=== PATIENT | female | born 1965 | race Caucasian/White ===

== ENCOUNTER 2017-04-14 09:08 | Observation (INO) | payer SELFPAY ==
[2017-04-14] VITALS (9 sets, daily range): BP systolic 146–200; BP diastolic 90–117; PULSE 64–88; RESP 18–20; TEMP 97.4–97.9; O2SAT 95–97
[~2017-04-14] VITALS: Ht 162.6 cm; Wt 69.4 kg
[~2017-04-14 09:08] MED LIST: DICL75 PO; HYDR-3533 PO
[2017-04-14] MEDS ORDERED: NAPR500 PO (09:15)
--- NOTE | 2017-04-14 09:17 | PD ---
HPI Chief Complaint: Chest Pain Time Seen by Provider: 09:13 Travel History International Travel<30 days: No Contact w/Intl Traveler<30days: No Traveled to known affect area: No History of Present Illness HPI CP, SUBSTERNAL, PRESSURE, NONRAD, 03/21, NO AGGRAVATING/ALLEVIATING FACTORS, NO ASSOC SX. PFSH Past Medical History Cardiovascular Problems: Yes Respiratory: Yes Past Surgical History Gynecologic Surgery: Yes (HYSTERECTOMY) Hysterectomy: Yes Social History Alcohol Use: Yes (occ) Tobacco Use: Yes (1 ppd) Substance Use: No Allergies-Medications (Allergen,Severity, Reaction): Coded Allergies: No Known Allergies (Unverified , 04/14/17) Reported Meds & Prescriptions Reported Meds & Active Scripts Active Omeprazole 40 Mg Cap 40 Mg PO DAILY Reported Naprosyn (Naproxen) 500 Mg Tab 500 Mg PO BID Review of Systems Except as stated in HPI: all other systems reviewed are Neg Cardiovascular: Positive: Chest Pain or Discomfort Physical Exam Narrative GENERAL: SKIN: Warm and dry. HEAD: Atraumatic. Normocephalic. EYES: Pupils equal and round. No scleral icterus. No injection or drainage. ENT: No nasal bleeding or discharge. Mucous membranes pink and moist. NECK: Trachea midline. No JVD. CARDIOVASCULAR: Regular rate and rhythm. RESPIRATORY: No accessory muscle use. Clear to auscultation. Breath sounds equal bilaterally. GASTROINTESTINAL: Abdomen soft, non-tender, nondistended. MUSCULOSKELETAL: Extremities without clubbing, cyanosis, or edema. No obvious deformities. NEUROLOGICAL: Awake and alert. No obvious cranial nerve deficits. Motor grossly within normal limits. Five out of 5 muscle strength in the arms and legs. Normal speech. PSYCHIATRIC: Appropriate mood and affect; insight and judgment normal. Data Data Last Documented VS Vital Signs Date Time Temp Pulse Resp B/P Pulse Ox O2 Delivery O2 Flow Rate FiO2 04/14/17 10:20 67 18 178/99 97 Room Air 04/14/17 09:15 97.9 Orders Electrocardiogram (04/14/17 09:17) B-Type Natriuretic Peptide (04/14/17 09:17) Ckmb (Isoenzyme) Profile (04/14/17 09:17) Complete Blood Count With Diff (04/14/17 09:17) Comprehensive Metabolic Panel (04/14/17 09:17) Prothrombin Time / Inr (Pt) (04/14/17 09:17) Act Partial Throm Time (Ptt) (04/14/17 09:17) Troponin I (04/14/17 09:17) Lipase (04/14/17 09:17) Chest, Single Ap (04/14/17 09:17) Ecg Monitoring (04/14/17 09:17) Bilateral Bp Monitoring (04/14/17 09:17) Iv Access Insert/Monitor (04/14/17 09:17) Oximetry (04/14/17 09:17) Oxygen Administration (04/14/17 09:17) Aspirin Chew (Aspirin Chew) (04/14/17 09:30) Morphine Inj (Morphine Inj) (04/14/17 09:30) Nitroglycerin 2% Oint (Nitroglycerin 2% (04/14/17 09:30) Sodium Chloride 0.9% Flush (Ns Flush) (04/14/17 09:30) Ct Pulmonary Angiogram (04/14/17 09:17) Iohexol 350 Inj (Omnipaque 350 Inj) (04/14/17 10:12) CKMB (04/14/17 09:05) CKMB% (04/14/17 09:05) Admit Order (Ed Use Only) (04/14/17 10:39) Labs Laboratory Tests Test 04/14/17 09:05 White Blood Count 8.4 TH/MM3 Red Blood Count 5.66 MIL/MM3 Hemoglobin 17.1 GM/DL Hematocrit 51.4 % Mean Corpuscular Volume 90.8 FL Mean Corpuscular Hemoglobin 30.2 PG Mean Corpuscular Hemoglobin 33.3 % Concent Red Cell Distribution Width 14.1 % Platelet Count 274 TH/MM3 Mean Platelet Volume 8.4 FL Neutrophils (%) (Auto) 68.8 % Lymphocytes (%) (Auto) 19.7 % Monocytes (%) (Auto) 6.6 % Eosinophils (%) (Auto) 4.4 % Basophils (%) (Auto) 0.5 % Neutrophils # (Auto) 5.7 TH/MM3 Lymphocytes # (Auto) 1.7 TH/MM3 Monocytes # (Auto) 0.6 TH/MM3 Eosinophils # (Auto) 0.4 TH/MM3 Basophils # (Auto) 0.0 TH/MM3 CBC Comment DIFF FINAL Differential Comment Prothrombin Time 10.7 SEC Prothromb Time International 1.0 RATIO Ratio Activated Partial 30.6 SEC Thromboplast Time Sodium Level 141 MEQ/L Potassium Level 4.0 MEQ/L Chloride Level 103 MEQ/L Carbon Dioxide Level 28.0 MEQ/L Anion Gap 7 MEQ/L Blood Urea Nitrogen 17 MG/DL Creatinine 0.60 MG/DL Estimat Glomerular Filtration 105 ML/MIN Rate Random Glucose 108 MG/DL Calcium Level 9.4 MG/DL Total Bilirubin 0.7 MG/DL Aspartate Amino Transf 21 U/L (AST/SGOT) Alanine Aminotransferase 18 U/L (ALT/SGPT) Alkaline Phosphatase 73 U/L Total Creatine Kinase 105 U/L Creatine Kinase MB 2.2 NG/ML Troponin I LESS THAN 0.02 NG/ML B-Type Natriuretic Peptide 19 PG/ML Total Protein 8.5 GM/DL Albumin 4.1 GM/DL Lipase 177 U/L [facility] Medical Decision Making Medical Screen Exam Complete: Yes Emergency Medical Condition: Yes Medical Record Reviewed: Yes Interpretation(s) BASELINE MOTION ARTIFACT, NSR 94, NORMAL INTERVALS, NO STEMI PATTERN Differential Diagnosis TN V NONSTEMI V PE V PNA V PERICARDIAL EFFUSION Narrative Course neg e/o pe, pericardial effusion, mi but will admit to [facility] pending r/o nonstemi Physician Communication Physician Communication D/W DR ORTA, CURRENTLY AWAITING TROPONIN RESULT, NEG PE/PERICARDIAL EFFUSION/ PNA BASED ON CHEST CT Diagnosis Primary Impression: cp r/o mi Admitting Information Admitting Physician Requests: Observation Scripts Omeprazole 40 Mg Cap40 Mg PO DAILY #30 CAP Ref 0 Prov:Avi Coppola 04/14/17 Reji Crawford MD Apr 14, 2017 09:16
[2017-04-14 09:29] LABS: AUTOMATED NEUTROPHIL # 5.7 TH/MM3 (1.8-7.7); BASOPHIL % 0.5 % (0.0-2.0); EOSINOPHIL # 0.4 TH/MM3 (0-0.4); EOSINOPHIL % 4.4 % (0.0-4.0); HEMATOCRIT 51.4 % (35.0-46.0); HEMO FLAGS DIFF FINAL; LYMPH % 19.7 % (9.0-44.0); LYMPHOCYTE # 1.7 TH/MM3 (1.0-4.8); MEAN CELL VOLUME 90.8 FL (80.0-100.0); MEAN CORPUSCULAR HEMOGLOBIN 30.2 PG (27.0-34.0); MEAN CORPUSCULAR HGB CONC 33.3 % (32.0-36.0); MONO % 6.6 % (0.0-8.0); NEUT % 68.8 % (16.0-70.0); PLATELET COUNT 274 TH/MM3 (150-450); RED BLOOD COUNT 5.66 MIL/MM3 (4.00-5.30); RED CELL DISTRIBUTION WIDTH 14.1 % (11.6-17.2); WHITE BLOOD COUNT 8.4 TH/MM3 (4.0-11.0)
[2017-04-14] MEDS ORDERED: ASPIRIN 81 MG CHEW TAB PO ONE (09:30)
[2017-04-14] MEDS ORDERED: MORPHINE SULFATE 4 MG/ML INJ IV PUSH ONE (09:30)
[2017-04-14] MEDS ORDERED: NITROGLYCERIN 2% OINT 1 GM PACKET TOP ONE (09:30)
[2017-04-14] MEDS ORDERED: SODIUM CHLORIDE 0.9% FLUSH 10 ML FLUSH IVF PRN (09:30)
[2017-04-14 09:42] LABS: APTT (PATIENT) 30.6 SEC (24.3-30.1); PROTHROMBIN TIME - PATIENT 10.7 SEC (9.8-11.6)
[2017-04-14 09:59] LABS: BLOOD UREA NITROGEN 17 MG/DL (7-18)
[2017-04-14 10:00] LABS: CHLORIDE 103 MEQ/L (98-107); GLOMERULAR FILTRATION RATE 105 ML/MIN (>89); SODIUM (NA) 141 MEQ/L (136-145)
--- NOTE | 2017-04-14 10:06 | RADRPT ---
EXAM DATE/TIME: 04/14/2017 09:28 [facility] COMPARISON: No previous studies available for comparison. INDICATIONS : Chest pain, shortness of breath. MEDICAL HISTORY : Rheumatoid arthritis. Smoker. Cardiac disorders. Respiratory disorders. SURGICAL HISTORY : Hysterectomy. ENCOUNTER: Initial ACUITY: 1 day PAIN SCORE: 7/10 LOCATION: chest FINDINGS: Subtle subcentimeter slighty spiculated appearing nodule in the right lung apex. Lungs otherwise pema r. Cardiac exam contours are within normal limits. Bony thorax is intact. CONCLUSION: 1. Questionable subcentimeter spiculated nodule in the right lung apex. The patient is already schedu led for CT of the chest and this can be further evaluated on that exam. Sharad Burnett MD on April 14, 2017 at 10:02 Board Certified Radiologist. This report was verified electronically.
[2017-04-14] MEDS ORDERED: IOHEXOL 350 MG/ML 10 ML VIAL (for RAD DIAG) IV ONE (10:12)
[2017-04-14 10:19] LABS: ALT (GPT) 18 U/L (10-53)
[2017-04-14 10:22] LABS: ANION GAP 7 MEQ/L (5-15)
--- NOTE | 2017-04-14 10:23 | RADRPT ---
EXAM DATE/TIME: 04/14/2017 09:54 [facility] COMPARISON: No previous studies available for comparison. INDICATIONS : Chest pain. IV CONTRAST: 75 cc Omnipaque 350 (iohexol) IV RADIATION DOSE: 9.98 CTDIvol (mGy) MEDICAL HISTORY : None SURGICAL HISTORY : Hysterectomy. ENCOUNTER: Initial ACUITY: 3 days PAIN SCALE: 7/10 LOCATION: chest TECHNIQUE: Volumetric scanning of the chest was performed using a pulmonary embolism protocol MIP images were re constructed. Using automated exposure control and adjustment of the mA and/or kV according to patien t size, radiation dose was kept as low as reasonably achievable to obtain optimal diagnostic quality images. DICOM format image data is available electronically for review and comparison. Follow-up recommendations for incidentally detected pulmonary nodules are based at a minimum on nodul e size and patient risk factors according to Fleischner Society Guidelines. FINDINGS: No filling defects are seen to suggest pulmonary embolic disease. There is no pleural or pericardial effusion. No focal lung consolidation. Tiny 3 mm subpleural nodule left lower lobe posteriorly, likel y benign. No adenopathy. No acute findings in the upper abdomen. CONCLUSION: 1. Negative for pulmonary embolus. No acute findings. Jelani Blanca MD on April 14, 2017 at 10:16 Board Certified Radiologist. This report was verified electronically.
[2017-04-14 10:24] LABS: TOTAL BILIRUBIN ADULT 0.7 MG/DL (0.2-1.0)
[2017-04-14 10:25] LABS: ALKALINE PHOSPHATASE 73 U/L (45-117); CREATINE KINASE 105 U/L (26-192)
[2017-04-14 10:32] LABS: AST (GOT) 21 U/L (15-37)
[2017-04-14 10:50] LABS: CKMB 2.2 NG/ML (0.5-3.6)
[2017-04-14] MEDS ORDERED: MORPHINE SULFATE 4 MG/ML INJ IV PRN (12:30)
[2017-04-14] MEDS ORDERED: SODIUM CHLORIDE 0.9% FLUSH 10 ML FLUSH IV FLUSH PRN (12:30)
[2017-04-14] MEDS ORDERED: ONDANSETRON HCL 4 MG/2 ML VIAL IV PRN (12:30)
[2017-04-14] MEDS ORDERED: ACETAMINOPHEN 500 MG CPLT PO PRN (12:30)
[2017-04-14] MEDS ORDERED: NITROGLYCERIN 0.4 MG SL 25 TABS/BTL SL PRN (12:30)
[2017-04-14] MEDS ORDERED: diphenhydrAMINE HCL 25 MG CAP PO ONE (13:30)
[2017-04-14] MEDS ORDERED: predniSONE 50 MG TAB PO ONE (13:30)
[2017-04-14] MEDS ORDERED: PANTOPRAZOLE SOD 40 MG DELAYED RELEASE TAB PO SCH (14:00)
--- NOTE | 2017-04-14 14:26 | HHI.HP ---
[facility] Service [place] [facility] Primary Care Physician No Primary Care Physician Admission Diagnosis CP R/O [place] Diagnoses: (1) Chest pain Diagnosis: Principal Chief Complaint: Chest pain Travel History International Travel<30 Days: No Contact w/Intl Traveler <30 Da: No Traveled to Known Affected Are: No History of Present Illness Written by Avi Coppola, acting as scribe for Dr. Mclean on 04/14/17 at 14: 20. 52-year-old female with no chronic medical illnesses who presented to hospital because of chest discomfort. Patient states that she has been experiencing left-sided chest pain for 3 days. Has remained fairly constant ranging from a 57 on a pain scale. She denies any shortness of breath, dyspnea , nausea, vomiting. States that she has had some radiation to her neck and into her back. She denies any lightheadedness or dizziness. At the present time she is experiencing the chest pain at a pain level of 2 after use of nitroglycerin. Patient does have increased risk factors to include age, tobacco use, early-onset family history. Patient denies any previous cardiac workup. 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 Patient states that she does have recurrent heartburn and ingestion. Patient was evaluated by ER physician recommended chest pain center observation Review of Systems Cardiovascular: COMPLAINS OF: Chest pain Except as stated in HPI: all other systems reviewed are Neg Past Family Social History Past Medical History Chronic tobacco use Arthritis Past Surgical History Hysterectomy Reported Medications Reported Meds & Active Scripts Active Reported Naprosyn (Naproxen) 500 Mg Tab 500 Mg PO BID Allergies: Coded Allergies: No Known Allergies (Unverified , 04/14/17) Family History Reviewed is significant for mother having heart disease and heart attack at age 48. Father also with heart disease Social History Patient continues smoke one pack a cigarettes a day since she was a teenager. She drinks 1 alcoholic beverage daily. Denies any illicit drugs Physical Exam Vital Signs Vital Signs Date Time Temp Pulse Resp B/P Pulse Ox O2 Delivery O2 Flow Rate FiO2 04/14/17 12:00 97.4 66 20 150/90 96 04/14/17 10:20 67 18 178/99 97 Room Air 04/14/17 09:51 82 20 153/98 170/100 04/14/17 09:24 85 95 Room Air 04/14/17 09:23 85 18 189/117 95 Room Air 04/14/17 09:20 95 Room Air 04/14/17 09:20 95 Room Air 04/14/17 09:15 97.9 88 18 200/113 95 Physical Exam GENERAL: Well-developed, well-nourished. alert and orientated HEENT: Head is normocephalic Facial features are symmetric. Eyes: Pupils equal round reactive to light. Extraocular muscles are intact. Conjunctivae were clear. Oropharyngeal: Pharynx without any erythema edema. Tongue is midline without deviation. Buccal mucosa is moist without any masses or lesions NECK: Supple without any masses. Trachea midline no deviation. CARDIAC: Regular rhythm, regular rate. No murmurs gallops or rubs. LUNGS: Clear to auscultation bilaterally. No wheeze. No use of accessory muscles on inspiration or expiration. ABDOMEN: Soft, mild epigastric tenderness. Nondistended. Bowel sounds heard in all 4 quadrants. No organomegaly or masses. Negative rebound, negative guarding EXTREMITIES: No edema, pulses are equal bilaterally. NEUROLOGY: Mood and affect appear appropriate. Cranial nerves II through XII grossly intact. Muscle strength 5/5 in upper and lower extremities bilaterally. Deep tendon reflexes are 2+ in upper and lower extremities bilaterally. Laboratory Laboratory Tests Test 04/14/17 09:05 White Blood Count 8.4 Red Blood Count 5.66 Hemoglobin 17.1 Hematocrit 51.4 Mean Corpuscular Volume 90.8 Mean Corpuscular Hemoglobin 30.2 Mean Corpuscular Hemoglobin 33.3 Concent Red Cell Distribution Width 14.1 Platelet Count 274 Mean Platelet Volume 8.4 Neutrophils (%) (Auto) 68.8 Lymphocytes (%) (Auto) 19.7 Monocytes (%) (Auto) 6.6 Eosinophils (%) (Auto) 4.4 Basophils (%) (Auto) 0.5 Neutrophils # (Auto) 5.7 Lymphocytes # (Auto) 1.7 Monocytes # (Auto) 0.6 Eosinophils # (Auto) 0.4 Basophils # (Auto) 0.0 CBC Comment DIFF FINAL Differential Comment Prothrombin Time 10.7 Prothromb Time International 1.0 Ratio Activated Partial 30.6 Thromboplast Time Sodium Level 141 Potassium Level 4.0 Chloride Level 103 Carbon Dioxide Level 28.0 Anion Gap 7 Blood Urea Nitrogen 17 Creatinine 0.60 Estimat Glomerular Filtration 105 Rate Random Glucose 108 Calcium Level 9.4 Total Bilirubin 0.7 Aspartate Amino Transf 21 (AST/SGOT) Alanine Aminotransferase 18 (ALT/SGPT) Alkaline Phosphatase 73 Total Creatine Kinase 105 Creatine Kinase MB 2.2 Troponin I LESS THAN 0.02 B-Type Natriuretic Peptide 19 Total Protein 8.5 Albumin 4.1 Lipase 177 Result Diagram: 04/14/1790404/14/17904 Imaging Last Impressions Chest X-Ray 04/14/17916 Signed Impressions: Service Date/Time: April 09:28 - CONCLUSION: 1. Questionable subcentimeter spiculated nodule in the right lung apex. The patient is already scheduled for CT of the chest and this can be further evaluated on that exam. Sharad Burnett MD CT Angiography 04/14/17916 Signed Impressions: Service Date/Time: April 09:54 - CONCLUSION: 1. Negative for pulmonary embolus. No acute findings. Jelani Blanca MD Assessment and Plan Assessment and Plan Chest pain, atypical Patient with increased risk factor to include age, tobacco use, family history of heart disease r/o acute coronary event with serial cardiac enzymes which were thus far have remained negative Serial EKG shows sinus rhythm without any changes If patient ruled out for acute coronary event will pursue exercise stress test rule out any underlying ischemia Continue aspirin, Tylenol and morphine for pain control nitroglycerin as needed Tobacco use Patient counseled on cessation DVT prevention Sequential compression devices Discharge disposition Discharged home in stable condition as stress test was negative Activity: Ad alberto. Diet: Healthy heart diet Medications per medication reconciliation Follow-up primary medical doctor in one week This note was transcribed by brandi Coppola. I, Dr. Lyndsay Mclean personally performed the history, physical exam, and medical decision making; and confirmed the accuracy of the information in the transcribed note. Authenticated by Dr. Lyndsay Mclean on 04/14/17 at 14:20. Code Status Full code Discussed Condition With ER physician, patient, nursing staff Problem Qualifiers (1) Chest pain: Qualified Code: R07.9 - Chest pain, unspecified type Avi Coppola Apr 14, 2017 14:26 Lyndsay Mclean MD Apr 15, 2017 15:19
[2017-04-14 14:44] LABS: CREATINE KINASE 80 U/L (26-192)
[2017-04-14 15:34] LABS: CREATINE KINASE 77 U/L (26-192)
--- NOTE | 2017-04-14 17:59 | HHI.DCPOC ---
Discharge Care Plan Diagnosis: (1) Chest pain Goals to Promote Your Health * To prevent worsening of your condition and complications * To maintain your health at the optimal level Directions to Meet Your Goals Take your medications as prescribed Follow your dietary instruction Follow activity as directed Keep your appointments as scheduled Take your immunizations and boosters as scheduled If your symptoms worsen call your PCP, if no PCP go to Urgent Care Center or Emergency Room Smoking is Dangerous to Your Health. Avoid second hand smoke Call the 24-hour hour crisis hotline for domestic abuse at Avi Coppola Apr 14, 2017 17:59
[2017-04-14] MEDS ORDERED: OMEP40CA2 PO (18:09)
[2017-04-14] MEDS ORDERED: SODIUM CHLORIDE 0.9% FLUSH 10 ML FLUSH IV FLUSH SCH (21:00)
[2017-04-15] MEDS ORDERED: ASPIRIN 325 MG TAB PO SCH (09:00)
[2017-04-15] MEDS ORDERED: predniSONE 50 MG TAB PO SCH (09:00)
--- NOTE | 2017-04-15 09:36 | EKG ---
Date Performed: 04/14/2017 Time Performed: 09:12:27 PTAGE: 52 years EKG: Sinus rhythm NORMAL ECG NO PREVIOUS TRACING DOCTOR: Ravi Devi Interpretating Date/Time 04/15/2017 09:32:27
--- NOTE | 2017-04-15 11:09 | EKG ---
Date Performed: 04/14/2017 Time Performed: 14:38:45 PTAGE: 52 years EKG: Sinus rhythm NORMAL ECG Since PREVIOUS TRACING , no significant change noted PREVIOUS TRACIN04/14/2017 12.40 DOCTOR: Ravi Devi Interpretating Date/Time 04/15/2017 11:07:55
--- NOTE | 2017-04-15 11:09 | EKG ---
Date Performed: 04/14/2017 Time Performed: 12:40:17 PTAGE: 52 years EKG: Sinus rhythm NORMAL ECG Since PREVIOUS TRACING , no significant change noted PREVIOUS TRACING 04/14/2017 09.12.27 DOCTOR: Ravi Devi Interpretating Date/Time 04/15/2017 11:08:59
== END 2017-04-14 18:17 | disposition home or self-care (01) ==
LOC: PHED 09:08 → PHEDA 10:40 → PH3B 11:25
PROVIDERS: ADMIT Hospitalist; ATTEND Hospitalist
DX: R07.89 Other chest pain (principal); F17.200 Nicotine dependence, unspecified, uncomplicated; M19.90 Unspecified osteoarthritis, unspecified site; Z79.82 Long term (current) use of aspirin; Z82.49 Family history of ischemic heart disease and other diseases of the circulatory system
CPT/HCPCS: 71010; 71275; 80053; 82550; 82552; 83690; 83880; 84484; 85025; 85610; 85730; 93005; 93017; 96374; 99285; G0378; J2270; Q9967